=== PATIENT | female | born 1970 | race Caucasian/White ===

== ENCOUNTER 2016-10-13 20:08 | Emergency (ER) | payer OTHER ==
[2016-10-13] MEDS ORDERED: IBUPROFEN 800 MG TABLET PO ONE (20:33)
[2016-10-13] MEDS ORDERED: CYCLOBENZAPRINE HCL 10 MG TABLET PO ONE (20:33)
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
[2016-10-13 22:24] VITALS: BP 112/69
== END 2016-10-13 22:23 | disposition home or self-care (01) ==
LOC: ER 20:08
DX: M54.5 Low back pain (principal); M54.2 Cervicalgia; R07.89 Other chest pain; V49.60XA Unspecified car occupant injured in collision with unspecified motor vehicles in traffic accident, initial encounter; I10 Essential (primary) hypertension; Z85.43 Personal history of malignant neoplasm of ovary; Z85.3 Personal history of malignant neoplasm of breast
CPT/HCPCS: 71020; 99283

== ENCOUNTER 2018-06-16 12:03 | Emergency (ER) | payer OTHER ==
[2018-06-16] MEDS ORDERED: CYCLOBENZAPRINE HCL 10 MG TABLET PO ONE (13:00)
[2018-06-16] MEDS ORDERED: KETOROLAC TROMETHAMINE 60 MG/2 ML SDV IM ONE (13:01)
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
[2018-06-16 13:28] VITALS: BP 117/75
== END 2018-06-16 13:31 | disposition home or self-care (01) ==
LOC: ER 12:03
DX: M54.2 Cervicalgia (principal); M54.6 Pain in thoracic spine; V43.52XA Car driver injured in collision with other type car in traffic accident, initial encounter; Z90.710 Acquired absence of both cervix and uterus; Z88.6 Allergy status to analgesic agent; Z88.2 Allergy status to sulfonamides
CPT/HCPCS: 99283; 96372; J1885

== ENCOUNTER → 2019-05-18 | Outpatient (CLI) | payer SELFPAY ==
[2019-05-18 15:21] LABS: AMORPHOUS SEDIMENT,URINE TRACE /HPF; APPEARANCE,URINE SLIGHTLY-CLOUDY; BILIRUBIN,URINE NEGATIVE (NEGATIVE); COLOR,URINE YELLOW; GLUCOSE, URINE NEGATIVE (NEGATIVE); KETONES,URINE NEGATIVE (NEGATIVE); LEUKOCYTE ESTERASE,URINE LARGE (NEGATIVE); NITRITE,URINE NEGATIVE (NEGATIVE); PROTEIN,URINE NEGATIVE (NEGATIVE); URINE SPECIFIC GRAVITY 1.005; UROBILINOGEN,URINE NEGATIVE mg/dL (<2.0)
[2019-05-18 18:27] LABS: CHLAM PCR NOT DETECTED (NOT DETECT)
== END ==
LOC: LAB 15:07
PROVIDERS: ATTEND Nurse Practitioner Family
DX: M54.5 Low back pain (principal); R10.84 Generalized abdominal pain
CPT/HCPCS: 81001; 87086; 87088; 87186; 87491; 87591

== ENCOUNTER 2019-09-04 21:45 | Emergency (ER) | payer SELFPAY ==
--- NOTE | 2019-09-04 23:26 | RADIOLOGY REPORT (SQ) ---
CLINICAL HISTORY: bone tenderness COMPARISON: None. 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 Joint spaces are preserved. Soft tissues are unremarkable. IMPRESSION: No acute osseous findings.
[2019-09-05] MEDS ORDERED: KETOROLAC TROMETHAMINE 60 MG/2 ML SDV IM ONE (00:40)
[2019-09-05] MEDS ORDERED: HYDROCODONE/ACETAMINOPHEN 5-325 MG (6 TAB/ER DISP) PO PRN (00:50)
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
[2019-09-05 03:18] VITALS: BP 129/56
== END 2019-09-05 01:50 | disposition home or self-care (01) ==
LOC: ER 21:45
DX: S86.911A Strain of unspecified muscle(s) and tendon(s) at lower leg level, right leg, initial encounter (principal); M25.561 Pain in right knee; W11.XXXA Fall on and from ladder, initial encounter
CPT/HCPCS: 99283; 96372; 73564; L1830; J1885